=== PATIENT | female | born 1960 | race Caucasian/White ===

== ENCOUNTER 2017-10-18 17:27 | Emergency (ER) | payer OTHER ==
[2017-10-18] MEDS ORDERED: PERCOCET 5-3251 EACH PO (19:27)
== END 2017-10-18 20:18 | disposition home or self-care (01) ==
LOC: ED 17:27
DX: S20.212A Contusion of left front wall of thorax, initial encounter (principal); K80.80 Other cholelithiasis without obstruction; S50.312A Abrasion of left elbow, initial encounter; E04.1 Nontoxic single thyroid nodule; V29.9XXA Motorcycle rider (driver) (passenger) injured in unspecified traffic accident, initial encounter; Z88.0 Allergy status to penicillin; Z88.1 Allergy status to other antibiotic agents; Z88.5 Allergy status to narcotic agent
CPT/HCPCS: 71045; 71260; 73080; 74160; 80053; 81001; 85025; 96374; 96376; 99284; J1170; Q9967